=== PATIENT | female | born 2000 | race Caucasian/White ===

== ENCOUNTER 2023-08-01 10:32 | Outpatient (CLI) ==
[~2023-08-01] VITALS: Ht 157.5 cm; Wt 62.7 kg
[2023-08-01] MEDS ORDERED: PRENTAB9 PO (10:49)
[2023-08-01] MEDS ORDERED: ASPI81CH33 PO (10:49)
[2023-08-01 10:50] VITALS: BP 131/75
[2023-08-01] MEDS ORDERED: HOME MED LIST COMPLETE! XX SCH (10:50)
[2023-08-01 11:41] VITALS: BP 122/71
== END 2023-08-01 12:36 | disposition home or self-care (01) ==
LOC: M LDO 10:32
PROVIDERS: ATTEND Obstetrics & Gynecology
DX: O9A.213 Injury, poisoning and certain other consequences of external causes complicating pregnancy, third trimester (principal); S30.0XXA Contusion of lower back and pelvis, initial encounter; W10.8XXA Fall (on) (from) other stairs and steps, initial encounter; Y92.9 Unspecified place or not applicable; Z3A.24 24 weeks gestation of pregnancy
CPT/HCPCS: 59025; G0463

== ENCOUNTER 2023-10-26 14:09 | Outpatient (CLI) | payer OTHER ==
[~2023-10-26] VITALS: Ht 157.5 cm; Wt 74.3 kg
[~2023-10-26 14:09] MED LIST: ASPI81CH33 PO; PRENTAB9 PO
[2023-10-26 14:42] VITALS: BP 151/103
[2023-10-26] MEDS ORDERED: HOME MED LIST COMPLETE! XX SCH (14:45)
[2023-10-26 14:52] VITALS: BP 146/96
[2023-10-26 15:02] VITALS: BP 149/103
[2023-10-26 15:15] LABS: TOTAL PROTEIN,RANDOM URINE 49.4 MG/DL (0.0-14.0)
[2023-10-26] MEDS ORDERED: LABETALOL 100MG TAB PO ONE (15:15)
[2023-10-26 15:20] LABS: CREATININE,RANDOM URINE 135.7 MG/DL
[2023-10-26 15:30] LABS: URIC ACID 5.2 MG/DL (3.1-7.8)
[2023-10-26 15:32] LABS: LDH LACTATE DEHYDROGENASE 154 U/L (120-246)
[2023-10-26 15:33] LABS: ALT/SGPT < 9 U/L (7.0-40); AST/SGOT 10 U/L (<34); BILIRUBIN,TOTAL 0.2 MG/DL (0.3-1.2); CREATININE FOR GFR 0.68 MG/DL (0.55-1.30); GLOMERULAR FILTRATION RATE > 60.0 (>60)
[2023-10-26 16:28] LABS: HEMATOCRIT 35.9 % (36.0-47.0); MEAN CORPUSCULAR HEMOGLOBIN 30.7 pg (27.0-33.0); MEAN CORPUSCULAR HGB CONC 33.4 g/dl (32.0-36.5); MEAN CORPUSCULAR VOLUME 91.8 fl (80.0-96.0); PLATELET COUNT, AUTOMATED 247 10^3/uL (150-450); RED BLOOD COUNT 3.91 10^6/uL (4.00-5.40); WHITE BLOOD COUNT 8.9 10^3/uL (4.0-10.0)
[2023-10-29] MEDS ORDERED: LABE300T3 PO (11:29)
== END 2023-10-26 16:45 | disposition home or self-care (01) ==
LOC: M LDO 14:09
PROVIDERS: ATTEND Obstetrics & Gynecology
DX: O11.3 Pre-existing hypertension with pre-eclampsia, third trimester (principal); O10.013 Pre-existing essential hypertension complicating pregnancy, third trimester; Z3A.36 36 weeks gestation of pregnancy; Z79.82 Long term (current) use of aspirin
CPT/HCPCS: 36415; 59025; 82247; 82570; 83615; 84156; 84450; 84460; 84550; 85027; 87081; G0463